=== PATIENT | female | born 1970 | race American Indian/Alaskan Native ===

== ENCOUNTER 2017-11-06 13:13 | Emergency (ER) | payer SELFPAY ==
[2017-11-06 13:24] VITALS: BP 117/80
== END 2017-11-06 13:39 | disposition left against medical advice (07) ==
LOC: ED 13:13
DX: R07.89 Other chest pain (principal); R06.00 Dyspnea, unspecified; Z53.21 Procedure and treatment not carried out due to patient leaving prior to being seen by health care provider
CPT/HCPCS: 93005; 93010